=== PATIENT | male | born 1930 | race Caucasian/White ===

== ENCOUNTER 2017-12-30 23:53 | Emergency (ER) | payer MEDICARE, BC ==
[2017-12-31 00:40] LABS: ADD MAN DIFF? NO
[2017-12-31 00:42] LABS: WHITE BLOOD COUNT 8.8 10^3/ul (4.8-10.8)
[2017-12-31 00:42] LABS: BASOPHILS % 0.3 % (0.0-2.0); EOSINOPHILS # 0.1 10^3/ul (0.0-0.5); EOSINOPHILS % 1.4 % (0.0-7.0); HEMATOCRIT 38.5 % (42.0-52.0); HEMOGLOBIN 12.6 g/dl (14.0-18.0); LYMPHOCYTES # 2.6 10^3/ul (0.8-2.9); LYMPHOCYTES % 28.9 % (15.0-51.0); MEAN CORPUSCULAR HEMOGLOBIN 33.3 pg (29.0-33.0); MEAN CORPUSCULAR HGB CONC 32.7 g/dl (32.0-37.0); MEAN CORPUSCULAR VOLUME 101.9 fl (82.0-101.0); MEAN PLATELET VOLUME 10.6 fl (7.4-10.4); MONOCYTE # 0.7 10^3/ul (0.3-0.9); MONOCYTES % 7.8 % (0.0-11.0); NEUTROPHIL # 5.4 10^3/ul (1.6-7.5); NEUTROPHILS % 61.1 % (39.0-77.0); PLATELET COUNT 167 10^3/UL (140-415); RED BLOOD COUNT 3.78 10^6/ul (4.70-6.10); RED CELL DISTRIBUTION WIDTH 14.7 % (11.5-14.5)
[2017-12-31 01:00] LABS: ANION GAP 13 (8-16); BLOOD UREA NITROGEN 31 mg/dl (7-20); CALCIUM 9.2 mg/dl (8.4-10.2); CARBON DIOXIDE 30 mmol/L (21-31); CHLORIDE 106 mmol/L (97-110); CREATININE 1.66 mg/dl (0.61-1.24); GLUCOSE 205 mg/dl (70-220); POTASSIUM 4.2 mmol/L (3.5-5.1); SODIUM 145 mmol/L (135-144)
[2017-12-31] MEDS: hydrALAzine 20 MG INJ IV (01:00)
[2017-12-31 01:12] LABS: TROPONIN-I 0.025 ng/ml (0.000-0.120)
[2017-12-31 01:23] LABS: INR 0.95; PROTIME 12.8 Sec (11.9-14.9)
[2017-12-31 01:24] LABS: PARTIAL THROMBOPLASTIN TIME 31.9 Sec (25.0-35.0)
[2017-12-31] MEDS ORDERED: ACETAMINOPHEN 325 MG TAB PO (01:30)
[2017-12-31] MEDS ORDERED: ONDANSETRON 4 MG INJ IV ×2 (01:30→02:30)
[2017-12-31] MEDS ORDERED: HEPARIN 1000 UNITS/ML 10 ML INJ (01:39)
[2017-12-31] MEDS ORDERED: BUPIVACAINE 0.5% (SDV) 30 ML INJ (01:39)
[2017-12-31] MEDS ORDERED: GELATIN SIZE 100 SPONGE (01:39)
[2017-12-31] MEDS ORDERED: THROMBIN 5000 UNIT VIAL (01:39)
[2017-12-31] MEDS ORDERED: HEPARIN 1000 UNITS/NS (A-LINE) 0 ML (01:40)
[2017-12-31] MEDS: NITROPRUSSIDE 50 MG in DEXTROSE 5% 248 ML IV (02:12)
[2017-12-31] MEDS ORDERED: niCARdipine 25 MG in SOD CHLORIDE 0.9% 240 ML IV (02:30)
[2017-12-31] MEDS ORDERED: morphine 2 MG INJ IV (02:30)
[2017-12-31] MEDS ORDERED: PROPOFOL 100 ML IV (02:30)
[2017-12-31] MEDS: IOHEXOL 350MG/ML 50 ML BTL (02:50)
[2017-12-31] MEDS: IOHEXOL 100 ML (02:50)
[2017-12-31] MEDS: SOD CHLORIDE 0.9% 100 ML (02:50)
== END 2017-12-31 06:39 | disposition short-term general hospital (02) ==
LOC: E/R 23:53
DX: I72.0 Aneurysm of carotid artery (principal); I12.9 Hypertensive chronic kidney disease with stage 1 through stage 4 chronic kidney disease, or unspecified chronic kidney disease; N18.9 Chronic kidney disease, unspecified; E11.22 Type 2 diabetes mellitus with diabetic chronic kidney disease; D53.9 Nutritional anemia, unspecified; Z79.4 Long term (current) use of insulin; Z79.82 Long term (current) use of aspirin
CPT/HCPCS: 36415; 70496; 70498; 71045; 71275; 80048; 84484; 85025; 85610; 85730; 93880; 96374; 96375; 99285-25

== ENCOUNTER 2018-01-23 01:50 | Emergency (ER) | payer MEDICARE, BC ==
[2018-01-23 03:12] LABS: ANION GAP 14 (8-16); BLOOD UREA NITROGEN 31 mg/dl (7-20); CALCIUM 8.9 mg/dl (8.4-10.2); CARBON DIOXIDE 24 mmol/L (21-31); CHLORIDE 114 mmol/L (97-110); CREATININE 1.55 mg/dl (0.61-1.24); GLUCOSE 136 mg/dl (70-220); POTASSIUM 5.2 mmol/L (3.5-5.1); SODIUM 147 mmol/L (135-144)
== END 2018-01-23 06:01 | disposition home or self-care (01) ==
LOC: E/R 01:50
DX: R22.1 Localized swelling, mass and lump, neck (principal); I10 Essential (primary) hypertension; E11.9 Type 2 diabetes mellitus without complications; Z79.4 Long term (current) use of insulin; Z79.82 Long term (current) use of aspirin
CPT/HCPCS: 36415; 70490; 80048; 99284-25